=== PATIENT | female | born 1990 | race Caucasian/White ===

== ENCOUNTER 2019-05-21 09:07 | Emergency (ER) | payer BC ==
[~2019-05-21] VITALS: Ht 162.6 cm; Wt 65.2 kg
[~2019-05-21 09:07] MED LIST: IBUP800T48 PO; ONDA4TAB14 PO; PREN1TAB49 PO
[2019-05-21 09:23] VITALS: Ht 162.6 cm; Wt 65.2 kg
[2019-05-21] MEDS ORDERED: ONDANSETRON 4 MG INJ IV STA (09:51)
[2019-05-21] MEDS ORDERED: SOD CHLORIDE 0.9% 1,000 ML IV STA (09:51)
[2019-05-21] MEDS ORDERED: morphine 2 MG INJ IV STA (09:51)
[2019-05-21 12:22] VITALS: BP 125/86; PULSE 89; RESP 18
== END 2019-05-21 12:29 | disposition home or self-care (01) ==
LOC: FTE 09:07
DX: R11.2 Nausea with vomiting, unspecified (principal); R10.13 Epigastric pain
CPT/HCPCS: 36415; 74176; 76705; 80053; 81001; 81025; 83690; 84702; 85025; 96361; 96374; 96375; 99285; J2270; J2405; J7030